=== PATIENT | male | born 1980 | race Caucasian/White ===

== ENCOUNTER 2024-12-22 09:44 | Day surgery (SDC) | payer OTHER ==
[2024-12-19 13:40] LABS: Anion Gap 11.3 mEq/L (5.0-15.0); Potassium 4.3 mEq/L (3.5-5.1)
[2024-12-22] MEDS: Ringers Lactate 1,000 ML IV ONE (10:10)
[2024-12-22] MEDS ORDERED: LIDOCAINE 2% MPF 5 ML VIAL ONE (10:47)
[2024-12-22] MEDS ORDERED: propofoL 200 MG/20 ML VIAL IV ONE (10:47)
[2024-12-22] MEDS ORDERED: FENTANYL CITR 100 MCG/2 ML ONE (10:47)
[2024-12-22] MEDS ORDERED: ONDANSETRON 4 MG/2 ML VIAL ONE (10:47)
[2024-12-22] MEDS ORDERED: dexAMETHasone 10 MG/ML VIAL ONE (10:47)
[2024-12-22] MEDS ORDERED: MIDAZOLAM HCL 2 MG/2 ML INJ ONE (10:47)
[2024-12-22] MEDS ORDERED: KETOROLAC 30 MG/ML INJ ONE (10:47)
[2024-12-22] MEDS: CEFAZOLIN SODIUM 2 GM/VIAL ONE (11:15)
[2024-12-22] MEDS: LIDOCAINE HCL/EPINEPHRINE 20 ML MDV ONE (11:41)
--- NOTE | 2024-12-22 12:00 | P.OP ---
Preoperative diagnosis: LEFT Flank / Back Cyst Postoperative diagnosis: LEFT Flank / Back Cyst Primary procedure: Wide Excision of LEFT Flank / Back Cyst Anesthesia: GETA + Local Estimated blood loss: <5cc Specimen: LEFT Flank / Back Cyst Findings: ~ 5cm x 3cm into adiopose cyst Complications: None Transferred to: Recovery Room Condition: Good
[2024-12-22 14:03] VITALS: BP 125/85; TEMP 97.4; O2SAT 100
--- NOTE | 2024-12-23 12:27 | EKG ---
Test Date: 2024-12-19 Test Time: 14:17:25 [employer]: ELIDA MEASUREMENT RESULTS: Intervals: Rate: 62 AL: 138 QRSD: 76 QT: 396 QTc: 401 [place]: P: 61 AL: 138 QRS: 83 T: 53 INTERPRETIVE STATEMENTS: Normal sinus rhythm Normal ECG No previous ECG available for comparison Electronically Signed On 12-23-24 12:19:55 SHIPPER by Ricco Matthews
== END 2024-12-22 13:34 | disposition home or self-care (01) ==
LOC: OR 09:44
PROVIDERS: ATTEND Surgery
PROC: 0JB70ZZ Excision of Back Subcutaneous Tissue and Fascia, Open Approach (ICD-10-PCS; principal; 2024-12-22 11:30)
DX: L72.0 Epidermal cyst (principal); Z88.0 Allergy status to penicillin
CPT/HCPCS: 93005; 80048; 36415; 88304; 11406; J2704; J2003; J2250; J3010; J1100; J2405; J7120